=== PATIENT | female | born 1980 | race American Indian/Alaskan Native ===

== ENCOUNTER 2017-03-02 10:23 | Emergency (ER) | payer OTHER ==
[2017-03-02 11:04] LABS: Basophils % (Auto) 0.8 % (0.0-1.8); Eosinophils % (Auto) 2.2 % (0.0-4.3); Hematocrit 33.2 % (30.3-42.9); Hemoglobin 10.7 gm/dl (10.1-14.3); Mean Corpuscular HGB Conc 32 % (30-34); Mean Corpuscular Volume 78 fl (79-97); Platelet Count 360 K/mm3 (140-440); Red Blood Count 4.23 M/mm3 (3.65-5.03); White Blood Count 7.2 K/mm3 (4.5-11.0)
[2017-03-02 11:06] LABS: Mean Corpuscular Hemoglobin 25 pg (28-32)
[2017-03-02 11:25] LABS: Anion Gap 16 mmol/L; BUN/Creatinine Ratio 17.14; Blood Urea Nitrogen 12 mg/dL (7-17); Calcium 8.8 mg/dL (8.4-10.2); Carbon Dioxide 25 mmol/L (22-30); Chloride 102.6 mmol/L (98-107); Glucose 95 mg/dL (65-100); Potassium 4.1 mmol/L (3.6-5.0); Sodium 139 mmol/L (137-145)
[2017-03-02 12:10] LABS: Bilirubin,Urine NEG (Negative); Blood,Urine NEG (Negative); Ketones,Urine NEG (Negative); Leukocyte Esterase,Urine NEG (Negative); Nitrite,Urine NEG (Negative); Protein,Urine <15 mg/dL mg/dL (Negative); Urobilinogen,Urine < 2.0 mg/dL (<2.0)
[2017-03-02 12:34] LABS: RBC,Urine < 1.0 /HPF (0.0-6.0); WBC,Urine < 1.0 /HPF (0.0-6.0)
[2017-03-02] MEDS ORDERED: NORCO 5/325 PO ONE (13:48)
--- NOTE | 2017-03-02 13:53 | Emergency Department Report ---
HPI - General Chief Complaint: Chest Pain Time Seen by Provider: 03/02/17 13:40 - HPI HPI: This is a 36-year-old female who presents emergency Department, dropped off by family to be seen, with complaint of a few days of low back pain. The patient is a history of chronic back issues be usually it will go away on its own. She has shown some improvement as she is now able to walk around and has further range of motion. She denies any numbness or paresthesias, problems with bowel or bladder, or any neurological deficits. She been taking Motrin for symptoms with some transient relief. This all began a few weeks ago when she was getting out of a car otherwise there was no obvious trauma. She does not currently have a primary care physician and has not seen anyone regarding her symptoms. The patient came in today was because she also started having some tightness in the chest. It is dull, 2 out of 10 currently. She denies being a tobacco smoker. She has a past medical history of this chronic back pain as well as non-Hodgkin's lymphoma in remission. No recent travel or sick contacts at home. ED Past Medical Hx - Past Medical History Previous Medical History?: No - Surgical History Past Surgical History?: No - Social History Smoking Status: Never Smoker Substance Use Type: None - Medications Home Medications: Home Medications Medication Instructions Recorded Confirmed Last Taken Type HYDROcodone/APAP 5-325 [[place] 1 each PO Q6HR PRN #10 tablet 03/02/17 Unknown Rx 5/325] ED Review of Systems ROS: Stated complaint: CHEST TIGHTNESS/LOWER BACK PAIN Other details as noted in HPI Comment: All other systems reviewed and negative Constitutional: denies: chills, fever Eyes: denies: eye pain, eye discharge, vision change ENT: denies: ear pain, throat pain Respiratory: denies: cough, shortness of breath, wheezing Cardiovascular: chest pain. denies: palpitations Gastrointestinal: denies: abdominal pain, nausea, diarrhea Genitourinary: denies: urgency, dysuria, discharge Musculoskeletal: back pain. denies: arthralgia Skin: denies: rash, lesions Neurological: denies: headache, weakness, paresthesias Physical Exam - Physical Exam Vital Signs: Vital Signs 03/02/17 03/02/17 10:42 13:36 Temperature 98.6 F Pulse Rate 87 Respiratory 18 18 Rate Blood Pressure 157/106 O2 Sat by Pulse 100 100 Oximetry Physical Exam: GENERAL: The patient is well-developed well-nourished. HEENT: Normocephalic. Atraumatic. Extraocular motions are intact. Patient has moist mucous membranes. NECK: Supple. Trachea is midline. CHEST/LUNGS: Clear to auscultation. There is no respiratory distress noted. HEART/CARDIOVASCULAR: Regular. There is no tachycardia. There is no gallop rub or murmur. ABDOMEN: Abdomen is soft, nontender. Patient has normal bowel sounds. There is no abdominal distention. Obese habitus. SKIN: Skin is warm and dry. NEURO: The patient is awake, alert, and oriented. The patient is cooperative. The patient has no focal neurologic deficits. The patient has normal speech and gait. MUSCULOSKELETAL: There is no tenderness or deformity. There is no limitation range of motion. There is no evidence of acute injury. Muscle strength 5 out of 5 upper and lower extremities. Laterally. BACK: No midline thoracic or lumbar tenderness to palpation, step-off or deformity. There is reproducible tenderness to palpation to the bilateral lumbar paraspinal muscles. ED Course Vital Signs 03/02/17 03/02/17 10:42 13:36 Temperature 98.6 F Pulse Rate 87 Respiratory 18 18 Rate Blood Pressure 157/106 O2 Sat by Pulse 100 100 Oximetry ED Medical Decision Making - Lab Data Result diagrams: 03/02/17 10:52 03/02/17 10:52 - EKG Data -: EKG Interpreted by [facility] EKG shows normal: sinus rhythm, axis, intervals, QRS complexes, ST-T waves Rate: normal - EKG Data When compared to previous EKG there are: previous EKG unavailable Interpretation: normal EKG - Radiology Data Radiology results: report reviewed CT angiography of the chest does not show any pulmonary embolism, dissection or any acute process. - Medical Decision Making 36-year-old female presents emergency Department with acute on chronic back pain. She does not have any positive bowel or bladder, numbness or paresthesias or any neurological deficits and therefore does not appear to have any of the emergent condition such as cauda equina, epidural abscess or cord compression syndrome. Secondarily she mentioned some nonspecific tightness in the chest. The only risk factor she appears to have is hypertension. Her labs unremarkable including negative troponins 2. There is no signs of infection, electrolyte abnormalities, renal insufficiency. She had a slightly elevated and equivocal d-dimer so a CT angiography of the chest was done that did not show any PE or dissection or any acute process. She is low on the heart score criteria and has a NIEVES score of 0. She was given some pain medication for her back and upon reevaluation she is improved. For all these reasons she appears safe for discharge home. She was given a referral for a neurosurgeon for follow -up regarding her back pain since it is chronic in nature and she may need an MRI in the future. She will return to the ER with any worsening of her symptoms or any acute distress. - Differential Diagnosis muscle spasm, back strain, TN, PE Critical Care Time: No Critical care attestation.: If time is entered above; I have spent that time in minutes in the direct care of this critically ill patient, excluding procedure time. ED Disposition Clinical Impression: Back pain Qualifiers: Back pain location: low back pain Chronicity: unspecified Back pain laterality : bilateral Sciatica presence: without sciatica Qualified Code(s): M54.5 - Low back pain Hypertension Qualifiers: Hypertension type: essential hypertension Qualified Code(s): I10 - Essential ( primary) hypertension Disposition: - TO HOME OR SELFCARE Is pt being admited?: No Condition: Stable Instructions: Hypertension (ED), Back Pain (ED) Additional Instructions: Please follow-up with the neurosurgeon, Dr Whalen, or any orthopedic back/ spine physician regarding her back pain. Return to the emergency department with any worsening of your symptoms or any acute distress. You've been prescribed a medication that is sedating. Therefore this medication cannot be mixed with alcohol, or taken prior to driving, working, or being responsible for children. Prescriptions: HYDROcodone/APAP 5-325 [[place] 5/325] 1 each PO Q6HR PRN #10 tablet PRN Reason: Pain Referrals: PRIMARY MD SUPRIYA [Primary Care Provider] - 3-5 Days JOSE WHALEN MD [Staff Physician] - 3-5 Days Time of Disposition: 16:45
[2017-03-02] MEDS ORDERED: ATIVAN IV ONE (15:18)
--- NOTE | 2017-03-02 15:56 | Cat Scan Report ---
FINAL REPORT PROCEDURE: CT ANGIO CHEST TECHNIQUE: Computerized tomographic angiography of the chest was performed after the IV injection of iodinated nonionic contrast including image processing. The image data was postprocessed using 2-dimensional multiplanar reformatted (MPR) and 3-dimensional (MIP and/or volume rendered) techniques. HISTORY: chest tightness, elevated dimer COMPARISON: No prior studies are available for comparison. FINDINGS: Heart and pericardium: Normal. Thoracic aorta: Normal. Pulmonary vasculature: There is suboptimal opacification of the pulmonary arteries and their branches. No obvious filling defects are identified. Lymph nodes: No enlarged thoracic lymph nodes. Lungs: Normal. Pleural space: No effusion, thickening, or pneumothorax. Musculoskeletal structures: No significant abnormality. Upper abdominal structures: No significant abnormality. IMPRESSION: No obvious acute pulmonary embolism. No acute pulmonary process
[2017-03-02 17:19] VITALS: BP 150/89
== END 2017-03-02 17:19 | disposition home or self-care (01) ==
LOC: ED 10:23
DX: M54.5 Low back pain (principal); I10 Essential (primary) hypertension
CPT/HCPCS: 36415; 71275; 80048; 81001; 81025; 84484; 85025; 85379; 93005; 93010; 96374; 99285; J2060; Q9967